=== PATIENT | female | born 1950 | race Caucasian/White ===

== ENCOUNTER → 2016-08-05 | Outpatient (CLI) | payer BC ==
--- NOTE | 2016-08-05 09:34 | MM ---
Reason for exam: follow-up at short interval from prior study. Last mammogram was performed 6 months ago. History: Patient is postmenopausal. Family history of breast cancer in maternal aunt at age 80 and breast cancer in paternal grandmother. Benign US breast aspiration single RT of the right breast, January 23, 2016. Took hormonal contraceptives for 15 years beginning at age 21. Physical Findings: Nurse did not find any significant physical abnormalities on exam. MG 3D Diag Mammo W/Cad KYLEE Bilateral CC and MLO view(s) were taken. Prior study comparison: January 23, 2016, right breast MG diagnostic mammo RT wo CAD. December 25, 2015, right breast MG 3d diag mammo w/cad RT. There are scattered fibroglandular densities. Finding: There are a few typically benign round calcifications in both breasts. Previous mammotome biopsy in the right breast. There is a chronic nodularity in the right breast. There is no new dominant lesion. These results were verbally communicated with the patient and result sheet given to the patient on 08/05/16. ASSESSMENT: Benign, BI-RAD 2 RECOMMENDATION: Routine screening mammogram of both breasts in 1 year.
== END | disposition home or self-care (01) ==
LOC: RADMAMWWP 06:52
PROVIDERS: ATTEND Obstetrics & Gynecology
DX: R92.8 Other abnormal and inconclusive findings on diagnostic imaging of breast (principal)
CPT/HCPCS: G0204; G0279

== ENCOUNTER → 2017-08-23 | Outpatient (CLI) | payer MEDICARE, BC ==
--- NOTE | 2017-08-23 11:50 | MM ---
Reason for exam: screening (asymptomatic). Baseline mammogram. History: Patient is postmenopausal. Family history of breast cancer in maternal aunt at age 80 and breast cancer in paternal grandmother. Benign US breast aspiration single RT of the right breast, January 23, 2016. Took hormonal contraceptives for 15 years beginning at age 21. Physical Findings: Nurse did not find any significant physical abnormalities on exam. MG 3D Diag Mammo W/Cad KYLEE Bilateral CC and MLO view(s) were taken. Prior study comparison: August 05, 2016, bilateral MG 3d diag mammo w/cad KYLEE. January 23, 2016, right breast MG diagnostic mammo RT wo CAD. The breast tissue is heterogeneously dense. This may lower the sensitivity of mammography. There is no discrete abnormality. No significant new findings when compared with previous films. These results were verbally communicated with the patient and result sheet given to the patient on 08/23/17. ASSESSMENT: Negative, BI-RAD 1 RECOMMENDATION: Routine screening mammogram of both breasts in 1 year.
== END | disposition home or self-care (01) ==
LOC: RADMAMWWP 10:15
PROVIDERS: ATTEND Obstetrics & Gynecology
DX: R92.8 Other abnormal and inconclusive findings on diagnostic imaging of breast (principal)
CPT/HCPCS: 77066; G0279; 77062

== ENCOUNTER 2018-10-01 14:32 | Emergency (ER) | payer MEDICARE, BC ==
[2018-10-01 14:39] VITALS: BP 112/73; TEMP 99.9
[2018-10-01 14:56] VITALS: PULSE 105; RESP 18
[2018-10-01] MEDS ORDERED: DEXAMETHASONE SOD PHOSPHATE 10 MG/ML 1 ML VIAL IM STA (15:11)
--- NOTE | 2018-10-01 15:13 | ED ---
General Adult HPI - General Chief complaint: Skin/Abscess/Foreign Body Stated complaint: rash Time Seen by Provider: 10/01/18 14:40 Source: patient Mode of arrival: ambulatory Limitations: no limitations - History of Present Illness Initial comments: Patient is a 67-year-old female presenting to emergency Department with a chief complaint of a rash. Patient reports the rash. 2 days ago on bilateral lower extremities and has now progressed through the rest of the body. Patient reports that rash is not pruritic. Patient denies any fevers, nausea, vomiting or diarrhea. Patient denies any changes in recent medication regimens or changes in soaps or detergents. Patient reports the rash is not painful. Patient denies taking medications to alleviate the symptoms. - Related Data Home Medications Medication Instructions Recorded Confirmed Cinnamon Bark [Cinnamon] 500 mg PO BID 10/01/18 10/01/18 Enalapril [Vasotec] 10 mg PO DAILY 10/01/18 10/01/18 Hydrochlorothiazide [Hydrodiuril] 12.5 mg PO DAILY 10/01/18 10/01/18 Simvastatin [Zocor] 10 mg PO HS 10/01/18 10/01/18 Sulfamethox-Tmp 800-160Mg [Bactrim 1 tab PO BID 10/01/18 10/01/18 DS 800-160 mg] sitaGLIPtin PHOS/metFORMIN HCL 1 tab PO BID 10/01/18 10/01/18 [Janumet 50-1,000 mg Tablet] Previous Rx's Medication Instructions Recorded methylPREDNISolone [Medrol Dose 4 mg PO DIRECTED #1 pack 10/01/18 Pack] Allergies Allergy/AdvReac Type Severity Reaction Status Date / Time Penicillins Allergy Rash/Hives Verified 10/01/18 16:02 Review of Systems ROS Statement: Those systems with pertinent positive or pertinent negative responses have been documented in the HPI. ROS Other: All systems not noted in ROS Statement are negative. Past Medical History Past Medical History: Diabetes Mellitus, Hyperlipidemia, Hypertension History of Any Multi-Drug Resistant Organisms: None Reported Past Surgical History: Joint Replacement, Orthopedic Surgery Past Psychological History: No Psychological Hx Reported Smoking Status: Never smoker Past Alcohol Use History: None Reported Past Drug Use History: None Reported General Exam Limitations: no limitations General appearance: alert, in no apparent distress Head exam: Present: atraumatic, normocephalic, normal inspection Eye exam: Present: normal appearance, PERRL, EOMI Pupils: Present: normal accommodation ENT exam: Present: normal exam, mucous membranes moist, normal external ear exam Neck exam: Present: normal inspection, full ROM Respiratory exam: Present: normal lung sounds bilaterally Cardiovascular Exam: Present: regular rate, normal rhythm, normal heart sounds Extremities exam: Present: normal inspection, full ROM Back exam: Present: normal inspection, full ROM Neurological exam: Present: alert, oriented X3 Psychiatric exam: Present: normal affect, normal mood Skin exam: Present: warm, intact, normal color, rash (Petechial rash noted on bilateral lower extremities and trunk) Course Vital Signs 10/01/18 10/01/18 14:35 14:55 Temperature 99.9 F H Pulse Rate 113 H 105 H Respiratory 16 18 Rate Blood Pressure 112/73 O2 Sat by Pulse 98 97 Oximetry Medical Decision Making - Medical Decision Making Patient is 67-year-old male presenting to emergency Department with a chief complaint of a rash. Based on physical examination the rash appears to be petec hial in nature suggesting a possible vasculitis. Patient given steroids Anania will be discharged with a Medrol Dosepak. I reevaluation patient reports a mild decrease in the rash. Patient advised to follow-up with primary care. Strict return parameters were thoroughly discussed with patient was understanding and agreeable. Case discussed with physician. Disposition Clinical Impression: Vasculitis Disposition: HOME SELF-CARE Condition: Stable Instructions (If sedation given, give patient instructions): Henoch-Schonlein Purpura (ED) Additional Instructions: Please take prescribed medication as directed. Please follow-up with primary care.. Return to emergency department if symptoms worsen. Prescriptions: methylPREDNISolone [Medrol Dose Pack] 4 mg PO DIRECTED #1 pack Is patient prescribed a controlled substance at d/c from ED?: No Referrals: Rashid Castillo MD [Primary Care Provider] - 1-2 days Time of Disposition: 15:13
== END 2018-10-01 15:45 | disposition home or self-care (01) ==
LOC: EC 14:32
DX: I77.6 Arteritis, unspecified (principal); E11.9 Type 2 diabetes mellitus without complications; E78.5 Hyperlipidemia, unspecified; I10 Essential (primary) hypertension; Z79.84 Long term (current) use of oral hypoglycemic drugs; Z79.899 Other long term (current) drug therapy; Z88.0 Allergy status to penicillin
CPT/HCPCS: 99282; 96372; J1100

== ENCOUNTER → 2019-01-17 | Outpatient (CLI) | payer MEDICARE, BC ==
--- NOTE | 2019-01-19 10:46 | MM ---
Reason for exam: screening (asymptomatic). Last mammogram was performed 1 year and 5 months ago. History: Patient is postmenopausal. Family history of breast cancer in maternal aunt at age 80 and breast cancer in paternal grandmother. Benign US breast aspiration single RT of the right breast, January 23, 2016. Took hormonal contraceptives for 15 years beginning at age 21. Physical Findings: A clinical breast exam by your physician is recommended on an annual basis and results should be correlated with mammographic findings. MG 3D Screening Mammo W/Cad Bilateral CC and MLO view(s) were taken. Prior study comparison: August 23, 2017, bilateral MG 3d diag mammo w/cad KYLEE. August 05, 2016, bilateral MG 3d diag mammo w/cad KYLEE. There are scattered fibroglandular densities. Previous mammotome biopsy in the right breast. No significant changes when compared with prior studies. ASSESSMENT: Negative, BI-RAD 1 RECOMMENDATION: Routine screening mammogram of both breasts in 1 year.
== END | disposition home or self-care (01) ==
LOC: RADMAMWWP 11:56
PROVIDERS: ATTEND Obstetrics & Gynecology
DX: Z12.31 Encounter for screening mammogram for malignant neoplasm of breast (principal)
CPT/HCPCS: 77063; 77067

== ENCOUNTER → 2019-02-06 | Outpatient (CLI) | payer MEDICARE, BC ==
--- NOTE | 2019-02-06 19:37 | MR ---
EXAMINATION TYPE: MR knee RT wo con DATE OF EXAM: 02/06/2019 COMPARISON: Plain film 01/23/2019 HISTORY: Rt knee pain x 3 mos TECHNIQUE: Multiplanar, multisequence imaging of the right knee is performed without IV contrast. FINDINGS: MEDIAL MENISCUS: There is abnormal increased signal involving the posterior horn of the medial menisc us at its lateral extent possibly indicating a tear of the root anchor or chronic degeneration, some linear increased signal present at the undersurface of the posterior horn of the medial meniscus exte nds the articular surface on sagittal image #9 and also within the body of the meniscus on coronal im age #19 LATERAL MENISCUS: Anterior and posterior horns are intact without tear. CRUCIATE LIGAMENTS: The anterior and posterior cruciate ligaments are intact and unremarkable. COLLATERAL LIGAMENTS: The medial collateral ligament and lateral collateral ligament complex are inta ct and unremarkable. EXTENSOR MECHANISM: Visualized quadriceps and patellar tendons are intact. EFFUSION: Suprapatellar joint effusion is present. POPLITEAL CYST: No popliteal/wallace cyst. TRICOMPARTMENT SPACES: Loss of joint space especially in the medial compartment, patellofemoral joint CARTILAGE: Grade 3 to grade IV chondromalacia present at the posterior patella and medial compartment . BONE MARROW SIGNAL: Subchondral marrow signal changes are present at the posterior patella and also a long the medial tibia proximally OTHER: Varicosities are noted in the subcutaneous fat medially. Tricompartmental marginal spurring p resent. Subcutaneous fat shows some edema anteriorly and medially. IMPRESSION: Osteoarthritis. Tear of the posterior horn the medial meniscus, there may be degenerative tear as bridger cribed at the root anchor
== END | disposition home or self-care (01) ==
LOC: RADMRIMAIN 14:58
PROVIDERS: ATTEND Orthopaedic Surgery
DX: M17.11 Unilateral primary osteoarthritis, right knee (principal); S83.241A Other tear of medial meniscus, current injury, right knee, initial encounter

== ENCOUNTER → 2019-03-09 | Outpatient (CLI) | payer MEDICARE, BC ==
[2019-03-09 08:58] LABS: Basophils # (A) 0.1 k/uL (0-0.2); Basophils % (A) 1 %; Eosinophils # (A) 0.6 k/uL (0-0.7); Eosinophils % (A) 8 %; HCT 41.3 % (34.0-46.0); HGB 13.7 gm/dL (11.4-16.0); Lymphocytes % (A) 25 %; MCH 29.7 pg (25.0-35.0); MCHC 33.1 g/dL (31.0-37.0); MCV 89.6 fL (80.0-100.0); Monocytes # (A) 0.5 k/uL (0-1.0); Monocytes % (A) 6 %; Neutrophils # (A) 4.6 k/uL (1.3-7.7); Neutrophils % (A) 58 %; Platelet Count 393 k/uL (150-450); RBC 4.61 m/uL (3.80-5.40); RDW 12.3 % (11.5-15.5); WBC 7.9 k/uL (3.8-10.6)
[2019-03-09 09:07] LABS: Potassium 4.8 mmol/L (3.5-5.1)
== END | disposition home or self-care (01) ==
LOC: LABPAT 08:20
PROVIDERS: ATTEND Orthopaedic Surgery
DX: Z01.818 Encounter for other preprocedural examination (principal); Z01.812 Encounter for preprocedural laboratory examination; M23.91 Unspecified internal derangement of right knee
CPT/HCPCS: 36415; 80051; 85025; 93005

== ENCOUNTER → 2019-03-19 | Outpatient (CLI) | payer MEDICARE, BC ==
[2019-03-19 13:42] LABS: HCT 42.1 % (34.0-46.0); HGB 13.7 gm/dL (11.4-16.0); MCH 29.8 pg (25.0-35.0); MCHC 32.7 g/dL (31.0-37.0); MCV 91.1 fL (80.0-100.0); Mean Platelet Volume 7.2; Platelet Count 333 k/uL (150-450); RBC 4.62 m/uL (3.80-5.40); RDW 12.5 % (11.5-15.5); WBC 8.7 k/uL (3.8-10.6)
[2019-03-19 15:13] LABS: Erythrocyte Sedimentation Rate 10 mm/hr (0-20)
[2019-03-19 21:57] LABS: C Reactive Protein <0.4 mg/dL (0.0-0.8); Rheumatoid Factor, Qnt <4 IU/mL (0-15)
[2019-03-19 22:21] LABS: Streptolysin O Ab(ASO) <25 IU/mL (0-200)
[2019-03-20 12:57] LABS: HLA B27 NEGATIVE
== END | disposition home or self-care (01) ==
LOC: LABWHC1 12:35
PROVIDERS: ATTEND Physician Assistant
DX: M54.2 Cervicalgia (principal); E11.618 Type 2 diabetes mellitus with other diabetic arthropathy
CPT/HCPCS: 36415; 84443; 85027; 85652; 86038; 86060; 86140; 86431; 86618; 86812

== ENCOUNTER 2019-03-29 10:57 | Day surgery (SDC) | payer MEDICARE, BC ==
[2019-03-14 09:57] VITALS: BMI 27.8
--- NOTE | 2019-03-28 13:55 | HP ---
HISTORY AND PHYSICAL DATE OF SURGERY: 03/29/2019 Jackelyn Negron is a 68-year-old patient seen with progressive right knee pain. We discussed options for treatment. She elected to proceed with arthroscopy. Consent was obtained. PAST MEDICAL HISTORY: Hypertension, wnd-[id number] diabetes, hyperlipidemia. PAST SURGICAL HISTORY: Cataract surgery, cholecystectomy, hysterectomy, left knee arthroscopy, left total knee arthroplasty. DAILY MEDICATIONS: 1. Enalapril. 2. Janumet. 3. Simvastatin. 4. Vitamins. ALLERGIES: None. SOCIAL HISTORY: She denies tobacco use. PHYSICAL EVALUATION OF THE RIGHT KNEE: Range of motion is 0-130. There is a mild effusion present. She is tender along the medial and lateral joint lines. There is a positive medial Steve's. There is a positive lateral Steve's. Her ligaments are stable. Hip rotation is without pain. Her distal neurovascular exam is intact. . RIGHT KNEE RADIOGRAPHS: revealed moderate medial and moderate patellofemoral compartment osteoarthritis,. A right knee MRI revealed medial meniscal tear and osteoarthritic changes. IMPRESSION: 1. Internal derangement, right knee with medial meniscal tear. 2. Hypertension. 3. Hyperlipidemia. 4. Lnv-zzjgdjr-[id number] diabetes. PLAN: Right knee arthroscopy with partial meniscectomy and debridement. MMODL / IJN: [id number] /
[~2019-03-29 10:57] MED LIST: HYDROmorphone 0.5 MG/0.5 ML SYRINGE IVP PRN; LACTATED RINGERS 1,000 ML IV SCH; LIDOCAINE 1% 20 ML VIAL (10MG/ML) FOR IV START INTRADERMA PRN; ONDANSETRON 4 MG/2 ML VIAL IVP ONE
[2019-03-29] MEDS ORDERED: DEXAMETHASONE SOD PHOSPHATE 10 MG/ML 1 ML VIAL IV ONE (11:40)
[2019-03-29 11:49] VITALS: RESP 16; TEMP 98.5
[2019-03-29 11:54] LABS: Glucose,Whole Blood 131 mg/dL (75-99)
[2019-03-29] MEDS ORDERED: LIDOCAINE 1% INJ 10MG/ML (20 ML MDV) ONE (12:15)
[2019-03-29] MEDS ORDERED: GLYCOPYRROLATE 0.2 MG/ML 2 ML VIAL ONE (12:15)
[2019-03-29] MEDS ORDERED: SUCCINYLCHOLINE CHLORIDE 100 MG/5 ML SYR IV ONE (12:15)
[2019-03-29] MEDS ORDERED: PROPOFOL 10 MG/ML 20 ML VIAL IV ONE (12:15)
[2019-03-29] MEDS ORDERED: fentaNYL (PF) 50 MCG/ML 2 ML AMP ONE (12:15)
[2019-03-29] MEDS ORDERED: ePHEDrine SULFATE/0.9% NACL/PF 50 MG/5 ML SYRINGE IV ONE (12:15)
[2019-03-29] MEDS ORDERED: BUPIVACAINE (PF) 0.25% 30 ML VIAL SQ ONE (12:40)
--- NOTE | 2019-03-29 13:07 | P.OP ---
Date of Procedure: 03/29/19 Preoperative Diagnosis: Internal derangement right knee Postoperative Diagnosis: 1. Tear medial meniscus right knee 2. Grade 3 chondromalacia patella right knee 3. Grade 3/4 chondromalacia medial femoral condyle right knee 4. Reactive synovitis medial, lateral and suprapatellar compartments right knee Procedure(s) Performed: 1. Arthroscopic partial medial meniscectomy right knee 2. Arthroscopic chondroplasty patella right knee 3. Arthroscopic chondroplasty medial femoral condyle right knee 4. Arthroscopic partial synovectomy medial, lateral and suprapatellar compartments right knee Anesthesia: BRADLEYA, local Surgeon: Armando Sierra Estimated Blood Loss (ml): 10 Pathology: none sent Condition: stable Disposition: PACU Indications for Procedure: 68-year-old patient seen with progressive right knee pain. After treatment options were discussed, she elected to proceed with arthroscopy. Operative Findings: See description of procedure Description of Procedure: Patient was taken to the operative suite. Patient underwent a general anesthetic by the department of anesthesia. Patient was given preoperative antibiotics. The right lower extremity was placed in a well-padded arthroscopic leg perez. The right leg was prepped and draped in the normal sterile orthopedic fashion. A lateral parapatellar and suprapatellar incision was made. Trochars were inserted. Arthroscopy was initiated. Suprapatellar pouch revealed diffuse thick reactive synovitis. The patellofemoral joint appeared to articulate congruently. There was grade 3 chondromalacia of the patella with diffuse osteochondral tears present. The scope was guided into the medial gutter. No loose bodies or plica were identified. The scope was then guided into the medial compartment. A medial parapatellar incision was made. Trocar inserted followed by probe. There was a radial tear posterior medial meniscus. Upon further exploration did appear to involve the posterior root. There were grade 3/4 chondromalacia changes of the medial femoral condyle with some osteochondral flap tears present. There was thick reactive synovitis anteriorly. I performed a partial medial meniscectomy getting down to stable meniscal tissue. I performed a chondroplasty of the medial femoral condyle getting down to stable osteochondral tissue. I performed a partial synovectomy decompressing reactive synovitis. The residual meniscus was found to be stable. The residual osteochondral surface of the medial femoral condyle was stable. There was good decompression of the synovitis. Scope and probe were then guided into the intercondylar notch. Cruciates were identified, probed and found to be stable. The scope and probe were then guided into lateral compartment. The lateral meniscus was probed and found to be stable. There were mild grade 1 chondral changes lateral compartment. There was reactive synovitis anteriorly. I performed a partial lateral meniscectomy decompressing the reactive synovitis. There was good decompression of the synovitis. The scope was in guided back into the suprapatellar compartment. I introduced my motorized shaver into the suprapatellar compartment. I debrided out piecemeal fragments of meniscus I encountered. I performed a chondroplasty of the patella getting down to stable osteochondral tissue. I performed a partial synovectomy decompressing the reactive synovitis. The shaver was removed. I took one more look around the knee. There was no residual debris. Instruments were now removed from the joint. The joint was infiltrated with .25% Marcaine. Steri-Strips were applied to the portal sites. Sterile dressings were applied. The patient was placed into a SHAKEEL hose. No tourniquet was utilized. The patient was awakened, transferred to a bed and taken to recovery stable satisfactory condition.
[2019-03-29 14:12] VITALS: BP 167/76; PULSE 94
[2019-03-29 14:19] LABS: Glucose,Whole Blood 128 mg/dL (75-99)
== END 2019-03-29 14:39 | disposition home or self-care (01) ==
LOC: OR 10:57
PROVIDERS: ATTEND Orthopaedic Surgery
DX: M23.221 Derangement of posterior horn of medial meniscus due to old tear or injury, right knee (principal); M22.41 Chondromalacia patellae, right knee; M65.861 Other synovitis and tenosynovitis, right lower leg; I10 Essential (primary) hypertension; E78.2 Mixed hyperlipidemia; E11.9 Type 2 diabetes mellitus without complications; Z88.0 Allergy status to penicillin; Z96.652 Presence of left artificial knee joint; Z90.710 Acquired absence of both cervix and uterus; Z90.49 Acquired absence of other specified parts of digestive tract; Z98.49 Cataract extraction status, unspecified eye; Z79.84 Long term (current) use of oral hypoglycemic drugs; Z79.899 Other long term (current) drug therapy; Z87.891 Personal history of nicotine dependence; Z82.49 Family history of ischemic heart disease and other diseases of the circulatory system
CPT/HCPCS: 29881; J1100; J2405; J0690; J2001; J3010; J0330; J2704; J1170

== ENCOUNTER → 2019-04-03 | Outpatient (CLI) | payer MEDICARE, BC ==
--- NOTE | 2019-04-03 09:46 | US ---
EXAMINATION TYPE: US thyroid st tissue head/neck DATE OF EXAM: 04/03/2019 COMPARISON: NONE CLINICAL HISTORY: 68-year-old female E04.1 Thyroid Nodule. Patient states having an MRI at an outside facility that showed thyroid nodules. Not on thyroid meds. TECHNIQUE: Multiple sonographic images of the thyroid gland are obtained. FINDINGS: GLAND SIZE: Right Lobe: 3.5 x 1.6 x 1.4 cm Overall Parenchyma: heterogenous Left Lobe: 4.0 x 1.7 x 1.3 cm Overall Parenchyma: homogeneous Isthmus Thickness: 0.4 cm NODULES- Multiple bilateral thyroid nodules visualized. Largest measured. RIGHT: # of nodules measured on right: 2 1. 1.3 X 1.1 x 0.8 cm hypoechoic nodule at the mid medial pole with well-defined margins. This nod ule is wider than tall and shows intranodular vascularity. Prior size: no prior 2. 0.8 X 0.7 x 0.7 cm mixed nodule at the mid lower pole with well-defined margins. This nodule is wide as tall and shows no intranodular vascularity. Prior size: No prior LEFT: # of nodules measured on left: 2 1. 1.2 X 0.9 x 0.6 cm mixed nodule at the medial lower pole with well-defined margins. This nodule is wider than tall and shows intranodular vascularity. Prior size: No prior 2. 0.6 X 0.6 x 0.5 cm mixed nodule at the upper mid pole with well-defined margins. This nodule is wider than tall and shows no intranodular vascularity. Prior size: No prior ISTHMUS: # of nodules measured in the isthmus: 1 1. 1.5 X 1.2 x 0.9 cm mixed nodule at the right lateral pole with well-defined margins. This nodul e is wider than tall and shows intranodular vascularity. Prior size: No prior Bilateral neck scanned, no evidence of lymphadenopathy. IMPRESSION: 1. Heterogeneous gland with multiple nodules, the largest of which are measured. Correlate for multin odular goiter. 2. Dominant solid nodule on the right measures 1.3 cm and on the left measures 1.2 cm. Mixed solid cy stic nodule in the right thyroid isthmus measures 1.5 cm. Follow-up as clinically indicated.
== END | disposition home or self-care (01) ==
LOC: RADUSWWP 07:26
PROVIDERS: ATTEND Family Medicine
DX: E04.2 Nontoxic multinodular goiter (principal)
CPT/HCPCS: 76536

== ENCOUNTER → 2020-01-28 | Outpatient (CLI) | payer MEDICARE, BC ==
--- NOTE | 2020-01-29 11:24 | MM ---
Reason for exam: screening (asymptomatic). Last mammogram was performed 1 year ago. History: Patient is postmenopausal. Family history of breast cancer in maternal aunt at age 80 and breast cancer in paternal grandmother. Benign US breast aspiration single RT of the right breast, January 23, 2016. Took hormonal contraceptives for 15 years beginning at age 21. Physical Findings: A clinical breast exam by your physician is recommended on an annual basis and results should be correlated with mammographic findings. MG 3D Screening Mammo W/Cad Bilateral CC and MLO view(s) were taken. Prior study comparison: January 17, 2019, bilateral MG 3d screening mammo w/cad. August 23, 2017, bilateral MG 3d diag mammo w/cad KYLEE. Benign appearing bilateral calcifications. Previous mammotome biopsy in the right breast. ASSESSMENT: Benign, BI-RAD 2 RECOMMENDATION: Routine screening mammogram of both breasts in 1 year.
== END | disposition home or self-care (01) ==
LOC: RADMAMWWP 13:23
PROVIDERS: ATTEND Family Medicine
DX: Z12.31 Encounter for screening mammogram for malignant neoplasm of breast (principal)
CPT/HCPCS: 77063; 77067

== ENCOUNTER → 2021-01-28 | Outpatient (CLI) | payer MEDICARE, BC ==
--- NOTE | 2021-01-30 11:31 | MM ---
Reason for exam: screening (asymptomatic). Last mammogram was performed 1 year ago. History: Patient is postmenopausal. Family history of breast cancer in maternal aunt at age 80 and breast cancer in paternal grandmother. Benign US breast aspiration single RT of the right breast, January 23, 2016. Took hormonal contraceptives for 15 years beginning at age 21. Physical Findings: A clinical breast exam by your physician is recommended on an annual basis and results should be correlated with mammographic findings. MG 3D Screening Mammo W/Cad Bilateral CC and MLO view(s) were taken. Prior study comparison: January 28, 2020, bilateral MG 3d screening mammo w/cad. January 17, 2019, bilateral MG 3d screening mammo w/cad. There are scattered fibroglandular densities. There are benign appearing round calcifications bilaterally. Previous mammotome biopsy in the right breast. There is no discrete abnormality. ASSESSMENT: Benign, BI-RAD 2 RECOMMENDATION: Routine screening mammogram of both breasts in 1 year.
== END | disposition home or self-care (01) ==
LOC: RADMAMWWP 07:54
PROVIDERS: ATTEND Obstetrics & Gynecology
DX: Z12.31 Encounter for screening mammogram for malignant neoplasm of breast (principal); Z78.0 Asymptomatic menopausal state; Z80.3 Family history of malignant neoplasm of breast
CPT/HCPCS: 77063; 77067

== ENCOUNTER → 2021-11-05 | Outpatient (CLI) | payer MEDICARE, BC ==
--- NOTE | 2021-11-05 11:22 | USB ---
Reason for Exam: Clinical finding. Patient History: Menarche at age 12. First Full-Term at age 20. Hysterectomy at age 43. Postmenopausal. Hormonal Contraceptives, starting at age 21 for 15 years. 01/23/2016, Benign Cyst Aspiration on the right side. Paternal grandmother had breast cancer. Maternal aunt had breast cancer, age 80. Risk Values: Ashley 5 year model risk: 1.4%. NCI Lifetime model risk: 4.2%. Technique: Method: Whole Breast Handheld. Prior Study Comparison: 01/17/2019 Bilateral Screening Mammogram, [facility]. 01/28/2020 Bilateral Screening Mammogram, [facility]. 01/28/2021 Bilateral Screening Mammogram, [facility]. Findings: The whole breast of the left breast, the axilla of the left breast and the retroareolar of the left breast were scanned. Left complete breast ultrasound includes all four quadrants, the retroareolar region and axilla. Finding demonstrates no cystic or solid lesion seen. Overall Assessment: Negative, BI-RAD 1 Management: Return to routine follow-up (next follow-up: 01/28/2022 for Screening Mammogram) Manage on a clinical basis with regard to left breast pain. A clinical breast exam by your physician is recommended on an annual basis and results should be correlated with mammographic findings. This exam should not preclude additional follow-up of suspicious palpable abnormalities. Results were given to the patient verbally at the time of exam. Electronically signed and approved by: Renzo Matthew M.D. Radiologist
== END | disposition home or self-care (01) ==
LOC: RADUSWWP 08:08
PROVIDERS: ATTEND Family Medicine
DX: N64.4 Mastodynia (principal); Z78.0 Asymptomatic menopausal state; Z80.3 Family history of malignant neoplasm of breast; Z98.890 Other specified postprocedural states

== ENCOUNTER → 2022-02-01 | Outpatient (CLI) | payer MEDICARE, BC ==
--- NOTE | 2022-02-02 10:31 | MM ---
Reason for Exam: Screening (asymptomatic). Last screening mammogram was performed 12 month(s) ago. Patient History: Menarche at age 12. First Full-Term at age 20. Hysterectomy at age 43. Postmenopausal. Hormonal Contraceptives, starting at age 21 for 15 years. 01/23/2016, Benign Cyst Aspiration on the right side. Paternal grandmother had breast cancer. Maternal aunt had breast cancer, age 80. Risk Values: Ashley 5 year model risk: 1.4%. NCI Lifetime model risk: 4.0%. Prior Study Comparison: 01/17/2019 Bilateral Screening Mammogram, [facility]. 01/28/2020 Bilateral Screening Mammogram, [facility]. 01/28/2021 Bilateral Screening Mammogram, [facility]. Tissue Density: There are scattered fibroglandular densities. Findings: Analyzed By CAD. Scattered benign round calcifications right greater than left demonstrated. Microclip upper-outer quadrant right breast from prior biopsy. There is no suspicious group of microcalcifications or new suspicious mass in either breast. Overall Assessment: Benign, BI-RAD 2 Management: Screening Mammogram of both breasts in 1 year. 1. Patient should continue monthly self breast exams. 2. A clinical breast exam by your physician is recommended on an annual basis. 3. This exam should not preclude additional follow-up of suspicious palpable abnormalities. Electronically signed and approved by: Renzo Matthew M.D. Radiologist
== END | disposition home or self-care (01) ==
LOC: RADMAMWWP 11:08
PROVIDERS: ATTEND Family Medicine
DX: Z12.31 Encounter for screening mammogram for malignant neoplasm of breast (principal); Z78.0 Asymptomatic menopausal state; Z80.3 Family history of malignant neoplasm of breast; Z98.890 Other specified postprocedural states
CPT/HCPCS: 77063; 77067

== ENCOUNTER → 2022-03-03 | Outpatient (CLI) | payer MEDICARE, BC ==
--- NOTE | 2022-03-03 16:38 | US ---
EXAMINATION TYPE: US abdomen complete DATE OF EXAM: 03/03/2022 COMPARISON: NONE CLINICAL HISTORY: N28.1 CYST OF KIDNEY, ACQUIRED. Hx cholecystectomy. Cyst of kidney. TECHNIQUE: Multiple sonographic images of the abdomen are obtained. FINDINGS: EXAM MEASUREMENTS: Liver Length: 14.9 cm CBD: 0.8 cm Spleen: 9.3 cm Right Kidney: 10.1 x 5.0 x 5.0 cm Left Kidney: 9.5 x 4.8 x 5.2 cm HOT PATCHER NOTES: Limited due to overlying bowel gas. Pancreas: Appears hyperechoic; not well seen. Liver: Appears coarse in echotexture. Gallbladder: Surgically absent Evidence for sonographic Mckinney's sign: No CBD: Appears wnl post-cholecystectomy Spleen: Appears heterogeneous Right Kidney: Anechoic area seen medially: 4.3 x 3.5 x 3.9 cm. Simple cyst Left Kidney: No hydronephrosis or masses seen Upper IVC: Appears wnl Abd Aorta: Limited due to gas. Iliacs were obscured. IMPRESSION: Right renal cyst.
== END | disposition home or self-care (01) ==
LOC: RADUSWWP 06:52
PROVIDERS: ATTEND Family Medicine
DX: N28.1 Cyst of kidney, acquired (principal)
CPT/HCPCS: 76700

== ENCOUNTER → 2023-02-02 | Outpatient (CLI) | payer MEDICARE, BC ==
--- NOTE | 2023-02-03 12:34 | MM ---
Reason for Exam: Screening (asymptomatic). Last screening mammogram was performed 12 month(s) ago. Patient History: Menarche at age 12. First Full-Term at age 20. Hysterectomy at age 43. Postmenopausal. Hormonal Contraceptives, starting at age 21 for 15 years. 01/23/2016, Benign Cyst Aspiration on the right side. Paternal grandmother had breast cancer. Maternal aunt had breast cancer, age 80. Risk Values: Ashley 5 year model risk: 1.4%. NCI Lifetime model risk: 3.8%. Prior Study Comparison: 01/28/2020 Bilateral Screening Mammogram, [facility]. 01/28/2021 Bilateral Screening Mammogram, [facility]. 02/01/2022 Bilateral MG 3D screening mammo w/cad, [facility]. Tissue Density: There are scattered fibroglandular densities. Findings: Analyzed By CAD. There is no suspicious group of microcalcifications or new suspicious mass in either breast. Overall Assessment: Benign, BI-RAD 2 Management: Screening Mammogram of both breasts in 1 year. . Patient should continue monthly self-breast exams. A clinical breast exam by your physician is recommended on an annual basis. This exam should not preclude additional follow-up of suspicious palpable abnormalities. Note on Ashley scores and lifetime risk: 1. A Ashley score greater than 3% is considered moderate risk. If this is the case, consider specialist referral to assess eligibility for a risk reducing agent. 2. If overall lifetime risk for the development of breast cancer is 20% or higher, the patient may qualify for future screening with alternating mammogram and breast MRI. Electronically signed and approved by: Jose Johnson M.D. Radiologis
== END | disposition home or self-care (01) ==
LOC: RADMAMWWP 08:08
PROVIDERS: ATTEND Family Medicine
DX: Z12.31 Encounter for screening mammogram for malignant neoplasm of breast (principal); Z78.0 Asymptomatic menopausal state; Z80.3 Family history of malignant neoplasm of breast
CPT/HCPCS: 77063; 77067

== ENCOUNTER → 2023-04-12 | Outpatient (CLI) | payer MEDICARE, BC ==
[2023-04-12] MEDS: DENOSUMAB 60 MG/ML 1 ML SYRINGE SQ NR (11:46)
[2023-04-12 12:05] VITALS: BP 142/73; PULSE 82; RESP 15; TEMP 97.6
== END ==
LOC: PROCWHC3 11:28
PROVIDERS: ATTEND Family Medicine
DX: M81.0 Age-related osteoporosis without current pathological fracture (principal)
CPT/HCPCS: 96372; J0897

== ENCOUNTER → 2023-10-18 | Outpatient (CLI) | payer MEDICARE, BC ==
[~2023-10-18] MED LIST changes: +DENOSUMAB 60 MG/ML 1 ML SYRINGE SQ ONE; -HYDROmorphone 0.5 MG/0.5 ML SYRINGE IVP PRN; -LACTATED RINGERS 1,000 ML IV SCH; -LIDOCAINE 1% 20 ML VIAL (10MG/ML) FOR IV START INTRADERMA PRN; -ONDANSETRON 4 MG/2 ML VIAL IVP ONE
== END ==
LOC: PROCWHC3 11:20
PROVIDERS: ATTEND Family Medicine
DX: M81.0 Age-related osteoporosis without current pathological fracture (principal)
CPT/HCPCS: 96372; J0897

== ENCOUNTER → 2024-01-03 | Outpatient (CLI) | payer MEDICARE, BC ==
--- NOTE | 2024-01-04 18:31 | US ---
EXAMINATION TYPE: US thyroid st tissue head/neck DATE OF EXAM: 01/03/2024 COMPARISON: US CLINICAL INDICATION: Female, 73 years old with history of E04.9 NONTOXIC GOITER; TECHNIQUE: Grayscale and color Doppler imaging of the thyroid gland. FINDINGS: GLAND SIZE: Right Lobe: 3.9 x1.7 x 1.4 cm Overall Parenchyma: heterogeneous Left Lobe: 3.6 x 1.4 x 1.2 cm Overall Parenchyma: heterogeneous Isthmus Thickness: 0.2 cm NODULES RIGHT: # of nodules measured on right: 2 1. 1.4 X 1.0 x 1.4 cm, upper, mixed cystic and solid, hypoechoic nodule, which is wider than tall, with smooth margins, with echogenic foci. TR 3 Prior size: Not visualized on prior 2. 0.9 X 0.9 x 1.1 cm, mid medial, solid or almost completely solid, hypoechoic nodule, which is ta ller than wide, with smooth margins, with echogenic foci. TR 5, fine-needle aspiration recommended Prior size: 1.3 x 0.8 x 1.1 cm LEFT: # of nodules measured on left: 1 1. 1.0 X 0.6 x 0.9 cm, lower, solid or almost completely solid, hypoechoic nodule, which is wider t parsons tall, with smooth margins, without echogenic foci. Prior size: 1.2 x 0.6 x 0.9 cm ISTHMUS: # of nodules measured in the isthmus: 1 1. 1.9 X 0.9 x 1.3 cm mixed cystic and solid, hypoechoic nodule, which is wider than tall, with smo oth margins, with echogenic foci. TR 3 Prior size: 1.5 x 0.9 x 1.2 cm Bilateral neck scanned, no evidence of lymphadenopathy. New nodule right lobe, other prior nodules st able- left lobe has innumerable nodules, largest one measured. IMPRESSION: 1. Highly suspicious nodule mid right thyroid lobe. Fine-needle aspiration recommended 2017 ACR TI-RADS LEVEL: TI-RADS 5 - Highly Suspicious: Follow if > 0.5 cm, FNA if > 1.0 cm *Highest TI-RADS level nodule reported [email or web address] [facility], , 01/04/2024 6:28 PM
== END | disposition home or self-care (01) ==
LOC: RADUSWWP 15:12
PROVIDERS: ATTEND Family Medicine
DX: E04.9 Nontoxic goiter, unspecified (principal)
CPT/HCPCS: 76536

== ENCOUNTER → 2024-02-06 | Outpatient (CLI) | payer MEDICARE, BC ==
--- NOTE | 2024-02-06 19:16 | MM ---
Reason for Exam: Screening (asymptomatic). Last screening mammogram was performed 12 month(s) ago. Patient History: Menarche at age 12. First Full-Term at age 20. Hysterectomy at age 43. Postmenopausal. Hormonal Contraceptives, starting at age 21 for 15 years. 01/23/2016, Benign Cyst Aspiration on the right side. Paternal grandmother had breast cancer. Maternal aunt had breast cancer, age 80. Risk Values: Ashley 5 year model risk: 1.4%. NCI Lifetime model risk: 3.6%. Prior Study Comparison: 01/28/2021 Bilateral Screening Mammogram, [facility]. 02/01/2022 Bilateral MG 3D screening mammo w/cad, [facility]. 02/02/2023 Bilateral MG 3D screening mammo w/cad, [facility]. Tissue Density: There are scattered areas of fibroglandular density. Findings: Analyzed By CAD. The pattern is symmetrical. Spherical and round calcifications are within the right breast. A few round calcifications are within the left breast. Core markers within the right breast. No significant interval change is evident No suspicious groups of microcalcifications, spiculated or lobular masses, architectural distortion or other secondary signs of malignancy are mammographically apparent. Overall Assessment: Benign, BI-RAD 2 Management: Screening Mammogram of both breasts in 1 year. A negative mammogram report should not preclude additional follow up of suspicious palpable abnormalities. Patient should continue monthly self breast exam. A clinical breast exam by your physician is recommended on an annual basis and results should be correlated with mammographic findings. Note on Ashley scores and lifetime risk: 1. A Ashley score greater than 3% is considered moderate risk. If this is the case, consider specialist referral to assess eligibility for a risk reducing agent. 2. If overall lifetime risk for the development of breast cancer is 20% or higher, the patient may qualify for future screening with alternating mammogram and breast MRI. [facility], , 02/06/2024 7:13 PM. Electronically signed and approved by: Sudhakar Barcenas D.O. Radiologis
== END | disposition home or self-care (01) ==
LOC: RADMAMWWP 10:53
PROVIDERS: ATTEND Family Medicine
DX: Z12.31 Encounter for screening mammogram for malignant neoplasm of breast (principal); Z78.0 Asymptomatic menopausal state; Z80.3 Family history of malignant neoplasm of breast; R92.323 Mammographic fibroglandular density, bilateral breasts
CPT/HCPCS: 77063; 77067

== ENCOUNTER → 2024-03-22 | Outpatient (CLI) | payer MEDICARE, BC ==
--- NOTE | 2024-03-22 13:52 | US ---
EXAMINATION TYPE: US transvaginal DATE OF EXAM: 03/22/2024 COMPARISON: NONE CLINICAL INDICATION: Female, 73 years old with history of R19.09 PELVIS SWELLING MASS; painful pap sm ear. Hysterectomy at age 41. TECHNIQUE: Transvaginal (TV). Doppler imaging: Not performed. FINDINGS: Date of LMP: over 20 years ago EXAM MEASUREMENTS: Uterus: Surgically absent Right Ovary: Not visualized due to bowel gas. Left Ovary: Not visualized due to bowel gas. 1. Uterus: Surgically absent 3. Right Ovary: not seen due to atrophy and bowel gas 4. Left Ovary: not seen due to atrophy and bowel gas 5. Bilateral Adnexa: wnl 6. Posterior cul-de-sac: wnl Uterus is surgically absent. No free fluid is seen. Neither ovary clearly visualized but no suspicious adnexal masses are noted. IMPRESSION: As above. [facility], , 03/22/2024 1:50 PM
== END | disposition home or self-care (01) ==
LOC: RADUSWWP 13:13
PROVIDERS: ATTEND Family Medicine
DX: R19.09 Other intra-abdominal and pelvic swelling, mass and lump (principal); Z90.710 Acquired absence of both cervix and uterus
CPT/HCPCS: 76830

== ENCOUNTER → 2024-04-20 | Outpatient (CLI) | payer MEDICARE, BC ==
[2024-04-20] MEDS: DENOSUMAB 60 MG/ML 1 ML SYRINGE SQ NR (13:59)
[2024-04-20 14:02] VITALS: BP 126/78; PULSE 80; RESP 16; TEMP 97.9
== END ==
LOC: PROCWHC3 13:18
PROVIDERS: ATTEND Family Medicine
DX: M81.0 Age-related osteoporosis without current pathological fracture (principal)
CPT/HCPCS: 96372; J0897

== ENCOUNTER → 2024-09-11 | Outpatient (CLI) | payer MEDICARE, BC ==
--- NOTE | 2024-09-11 14:37 | US ---
EXAMINATION TYPE: US carotid duplex BILAT DATE OF EXAM: 09/11/2024 COMPARISON: NONE CLINICAL INDICATION: Female, 73 years old with history of R09.89 OT SYMPTOMS AND SIGNS INVOLVING THE CIRC A; Additional History: Bruit TECHNIQUE: Grayscale, color Doppler and spectral Doppler evaluation of the bilateral carotid systems and vertebral arteries. Indirect Doppler criteria was utilized. FINDINGS: EXAM MEASUREMENTS: RIGHT: Peak Systolic Velocity (PSV) cm/sec ----- Right CCA: 118 ----- Right ICA: 127 ----- Right ECA: 145 ICA/CCA ratio: 1.1 RIGHT: End Diastole cm/sec ----- Right CCA: 22.0 ----- Right ICA: 26.4 ----- Right ECA: 8.2 LEFT: Peak Systolic Velocity (PSV) cm/sec ----- Left CCA: 114 ----- Left ICA: 107 ----- Left ECA: 110 ICA/CCA ratio: 0.9 LEFT: End Diastole cm/sec ----- Left CCA: 24.7 ----- Left ICA: 30.5 ----- Left ECA: 15.6 VERTEBRALS (direction of flow): Right Vertebral: Antegrade Left Vertebral: Antegrade Rhythm: Normal [employer] NOTES: Minimal bilateral plaque seen, no significant stenosis seen, slightly elevated RT ECA Color Doppler imaging shows patency with blood flow throughout the carotid artery. Spectral waveforms are within normal limits. IMPRESSION: No hemodynamically significant internal carotid artery stenosis on either side. Criteria for Assigning % of Stenosis / Diameter reduction (Estimation based on the indirect measurements of the internal carotid artery velocities (ICA PSV). 1. Normal (no stenosis)=ICA PSV < 180 cm/s: ratio < 2.0: ICA EDV<40 cm/s. 2. Less than 50% stenosis=ICA PSV < 180 cm/s: ratio < 2.0: ICA EDV<40 cm/s. 3. 50 to 69% stenosis=ICA PSV of 180 to 230 cm/s: ration 2.0 ? 4.0: ICA EDV 40-100 cm/s. PSV 125-180 cm/sec and ICA/CCA PSV Ratio ? 2.0 is also consistent with 50-69% stenosis 4. Greater than 70% stenosis to near occlusion= ICA PSV > 230 cm/s: ratio > 4.0: ICA EDV > 100 cm/s. 5. Near occlusion= ICA PSV velocities may be low or undetectable: variable ratio and ICA EDV. 6. Total occlusion=unable to detect flow. [facility], , 09/11/2024 2:35 PM
== END | disposition home or self-care (01) ==
LOC: RADUSWWP 13:17
PROVIDERS: ATTEND Family Medicine
DX: R09.89 Other specified symptoms and signs involving the circulatory and respiratory systems (principal)
CPT/HCPCS: 93880